=== PATIENT | male | born 1995 | race Caucasian/White ===

== ENCOUNTER 2020-12-21 01:54 | Emergency (ER) | payer BC ==
[~2020-12-21] VITALS: Ht 175.3 cm; Wt 77.6 kg
[2020-12-21] MEDS ORDERED: HYDROCODON-ACE1 EAC7 PO (02:03)
[2020-12-21 03:29] LABS: ABSOLUTE NEUTROPHILS 5.2 thou/uL (1.4-8.2); BASOPHILS 0.6 % (0.0-2.0); HEMATOCRIT 45.5 % (42.0-52.0); HEMOGLOBIN 15.3 gm/dL (14.0-18.0); LYMPHOCYTES 24.4 % (24.0-44.0); MCH 30.2 pg (26.0-34.0); MCHC 33.7 g/dL (28.0-37.0); MCV 89.6 fL (80.0-100.0); MONOCYTES 10.3 % (1.0-8.0); PLATELET COUNT 198 thou/uL (150-400); POLYS 62.7 % (36.0-66.0); RBC 5.09 mil/uL (4.50-6.00); RDW 13.1 % (10.5-14.5); WBC 8.2 thou/uL (4.0-11.0)
[2020-12-21 03:45] LABS: CALCIUM 8.6 mg/dL (8.5-10.1); CREATININE 1.2 mg/dL (0.7-1.3); POTASSIUM 3.6 mmol/L (3.5-5.1)
[2020-12-21] MEDS ORDERED: CYCLOBENZAPRINE5 MG PO (04:05)
[2020-12-21] MEDS ORDERED: MOBIC15 MG PO (04:05)
[2020-12-21 04:27] VITALS: BP 115/59
== END 2020-12-21 04:20 | disposition home or self-care (01) ==
LOC: ER 01:54
PROVIDERS: Emergency Medicine
DX: S96.811A Strain of other specified muscles and tendons at ankle and foot level, right foot, initial encounter (principal); Z96.621 Presence of right artificial elbow joint; M21.371 Foot drop, right foot; X50.0XXA Overexertion from strenuous movement or load, initial encounter; Y93.66 Activity, soccer; Y92.89 Other specified places as the place of occurrence of the external cause; Y99.8 Other external cause status